=== PATIENT | male | born 1980 | race Caucasian/White ===

== ENCOUNTER 2016-12-08 18:02 | Observation (INO) ==
--- NOTE | 2016-12-08 18:19 | Emergency Department Note ---
Disposition Clinical Impression: Substance abuse, Paranoia (psychosis), Methamphetamine abuse, Cocaine abuse Disposition: Admitted As Inpatient Condition: Fair Referrals: NO,PCP [Primary Care Provider] - Forms: ED Satisfaction Letter Time of Disposition: 20:47 Psych HPI - General Chief Complaint: ED Psychiatric Symptoms Stated Complaint: Psych complaints Time Seen by Provider: 12/08/16 18:10 Source: patient, EMS Mode of arrival: EMS Limitations: no limitations Nursing Notes Reviewed: Yes Vital Signs Reviewed: Yes - History of Present Illness HPI Narrative: 36-year-old says he's been on a 5 day binge of methamphetamine injection. The patient has not slept in 3-4 days. He apparently got paranoid and started walking down the street. He was picked up by the police and brought here. Pt complaint: altered mental status, other (Methamphetamine binge) Onset (ago): day(s) (5) Duration: constant History of similar episodes: Yes Improves with: none Worsens with: none Context: recent drug abuse (After the ketamine) Alleged intoxication: Yes Associated Psychiatric Symptoms: other (Paranoia) Associated symptoms: Denies: confusion, headache, shortness of breath Traumatic symptoms: denies traumatic injury Treatments prior to arrival: none, retirement/police - Related Data Allergies Allergy/AdvReac Type Severity Reaction Status Date / Time No Known Allergies Allergy Verified 12/08/16 18:05 Constitutional: Denies: fever, chills, weakness, weight change Eyes: Denies: eye pain, eye discharge, vision change ENT ED: Denies: ear pain, throat pain, dental pain, hearing loss, epistaxis, congestion, dysphagia Cardiovascular: Denies: chest pain, palpitations, dyspnea on exertion, edema, syncope Respiratory: Denies: cough, dyspnea, wheezes, hemoptysis, stridor Gastrointestinal: Denies: abdominal pain, nausea, vomiting, diarrhea, constipation, hematemesis, melena, hematochezia Genitourinary: Denies: urgency, dysuria, frequency, hematuria Musculoskeletal: Denies: back pain, neck pain, arthralgia, myalgia Integumentary: Denies: rash, abrasion, lesions Neurological: Denies: headache, weakness, numbness, paresthesias, confusion, abnormal gait, vertigo Psychiatric: Denies: anxiety, depression, suicidal thoughts, homicidal thoughts , auditory hallucinations, visual hallucinations Endocrine: Denies: fatigue Hematological/Lymphatic: Denies: easy bleeding, easy bruising Allergic/Immunologic: Denies: facial swelling, urticaria Past Medical History - Past Medical History Medical history: Reports: no medical history Psychiatric history: Reports: anxiety - Social History Smoking Status: Former smoker Smokeless Tobacco Status: No Alcohol use: Reports: occasionally Drug use: Reports: cocaine, marijuana, methamphetamine, IVDU, prescription drug abuse Physical Exam - General Limitations: no limitations General appearance: alert, in no apparent distress - Head Head exam: atraumatic, normocephalic, normal inspection - Eye Eye exam: Present: normal appearance, PERRL, EOMI - ENT ENT exam: normal exam, normal oropharynx, mucous membranes moist - Neck Neck exam: Present: normal inspection, full ROM, trachea midline - Chest Chest inspection: Present: normal inspection, symmetric chest wall rise - Respiratory Respiratory exam: Present: normal lung sounds bilaterally - Cardiovascular Cardiovascular exam: Present: regular rate, normal rhythm, normal heart sounds - Abdominal Exam Abdominal exam: Present: soft, Non-Tender. Absent: tenderness, distention, guarding, rebound, rigidity - Extremities Exam Extremities exam: Present: normal inspection, full ROM. Absent: tenderness, pedal edema - Expanded Lower Extremity Exam Neurovascular/Tendon exam: Absent: motor deficit, sensory deficit, tendon deficit Gait: observed and normal - Back Exam Back exam: Present: normal inspection, full ROM. Absent: tenderness - Neurological Exam Neurological exam: Present: alert, oriented X3 - Psychiatric Psychiatric exam: Present: normal affect, normal mood - Skin Skin exam: Present: warm, dry, intact, normal color Course - Reevaluation(s) Reevaluation #1: Patient was evaluated by psychiatry who did not feel that they could admit him here. Patient is obviously not safe to go home and from my point of view appears to be psychiatric however they do not want to admit him. Time: 22:25 - Consultations Consultation #1: I discussed the case with , he will admit here he wants the patient to have a sitter. Time: 22:25 Vital Signs Temperature 98.6 F 12/08/16 18:05 Pulse Rate 103 12/08/16 18:05 Respiratory Rate 16 12/08/16 18:05 Blood Pressure 150/93 12/08/16 18:05 O2 Sat by Pulse Oximetry 97 12/08/16 18:05 Temperature 98.6 F 12/08/16 18:05 Pulse Rate 103 12/08/16 18:05 Respiratory Rate 16 12/08/16 18:05 Blood Pressure 150/93 12/08/16 18:05 O2 Sat by Pulse Oximetry 97 12/08/16 18:05 Oxygen Delivery Oxygen Delivery Room Air Psych - Lab Data Result diagrams: 12/08/16 18:51 12/08/16 18:51 Lab Results 12/08/16 12/08/16 12/08/16 Range/Units 18:51 18:51 20:10 WBC 7.2 (4.3-11.1) K/mcL RBC 5.15 (4.19-5.50) M/mcL Hgb 15.8 (12.9-16.9) g/dL Hct 46.2 (37.5-50.1) % MCV 89.7 (83.0-100.0) fL MCH 30.7 (28.0-33.3) pg MCHC 34.2 (31.6-35.5) g/dL RDW 12.2 (11.5-14.5) % Plt Count 247 (140-400) K/mcL MPV 9.0 L (9.4-12.4) fL Immature Gran % 0.4 (0-4) % Seg Neutrophils % 76.1 % Lymphocytes % 15.0 % Monocytes % 7.9 % Eosinophils % 0.3 % Basophils % 0.3 % Neutrophils # 5.5 (1.6-8.9) K/mcL Lymphocytes # 1.1 (0.6-4.6) K/mcL Monocytes # 0.6 (0.0-1.3) K/mcL Eosinophils # 0.0 (0.0-0.6) K/mcL Basophils # 0.0 (0.0-0.2) K/mcL Sodium 140 (136-145) mEq/L Potassium 3.6 (3.5-4.5) mEq/L Chloride 104 (98-109) mEq/L Carbon Dioxide 24 (19-29) mEq/L BUN 14 (8-26) mg/dL Creatinine 0.86 (0.72-1.25) mg/dL Est GFR ( Amer) > 60 (> 60) Est GFR (Non-Af Amer) > 60 (> 60) BUN/Creatinine Ratio 16 (6-26) Glucose 86 (70-99) mg/dL Calculated Osmolality 290 (280-300) Calcium 9.5 (8.6-10.8) mg/dL Urine Color Yellow (Yellow) Urine Clarity Clear (Clear) Urine pH 6.0 (5.0-8.0) pH Units Ur Specific Balsam 1.027 H (1.010-1.025) Urine Protein Trace (Neg-Trace) mg/dL Urine Glucose (UA) Normal (Normal) mg/dL Urine Ketones 15 H (Negative) mg/dL Urine Blood Negative (Negative) Urine Nitrite Negative (Negative) Urine Bilirubin Negative (Negative) Urine Urobilinogen Normal (Normal) mg/dL Ur Leukocyte Esterase Negative (Negative) Urine Microscopic RBC 3-5 H (0-3) per hpf Urine Microscopic WBC 0-3 (0-3) per hpf Ur Squamous Epith Cells Many H (None-Few) per lpf Urine Bacteria None Seen (None-Few) per hpf Hyaline Casts None Seen (None-Few) per lpf Salicylates < 5.0 L (15-30) mg/dL Urine Opiates Screen (Oauvlm=011) ng/mL Acetaminophen < 1.0 L (10-30) mcg/mL Ur Barbiturates Screen (Xteeqv=145) ng/mL Ur Phencyclidine Scrn (Cutoff=25) ng/mL Ur Amphetamines Screen (Hokrjd=7282) ng/mL U Benzodiazepines Scrn (Mzqfgb=668) ng/mL Urine Cocaine Screen (Cutoff= 300) ng/mL U Marijuana (THC) Screen (Cutoff = 50) ng/mL Ethyl Alcohol < 10 (0-10) mg/dL 12/08/16 Range/Units 20:10 WBC (4.3-11.1) K/mcL RBC (4.19-5.50) M/mcL Hgb (12.9-16.9) g/dL Hct (37.5-50.1) % MCV (83.0-100.0) fL MCH (28.0-33.3) pg MCHC (31.6-35.5) g/dL RDW (11.5-14.5) % Plt Count (140-400) K/mcL MPV (9.4-12.4) fL Immature Gran % (0-4) % Seg Neutrophils % % Lymphocytes % % Monocytes % % Eosinophils % % Basophils % % Neutrophils # (1.6-8.9) K/mcL Lymphocytes # (0.6-4.6) K/mcL Monocytes # (0.0-1.3) K/mcL Eosinophils # (0.0-0.6) K/mcL Basophils # (0.0-0.2) K/mcL Sodium (136-145) mEq/L Potassium (3.5-4.5) mEq/L Chloride (98-109) mEq/L Carbon Dioxide (19-29) mEq/L BUN (8-26) mg/dL Creatinine (0.72-1.25) mg/dL Est GFR ( Amer) (> 60) Est GFR (Non-Af Amer) (> 60) BUN/Creatinine Ratio (6-26) Glucose (70-99) mg/dL Calculated Osmolality (280-300) Calcium (8.6-10.8) mg/dL Urine Color (Yellow) Urine Clarity (Clear) Urine pH (5.0-8.0) pH Units Ur Specific Balsam (1.010-1.025) Urine Protein (Neg-Trace) mg/dL Urine Glucose (UA) (Normal) mg/dL Urine Ketones (Negative) mg/dL Urine Blood (Negative) Urine Nitrite (Negative) Urine Bilirubin (Negative) Urine Urobilinogen (Normal) mg/dL Ur Leukocyte Esterase (Negative) Urine Microscopic RBC (0-3) per hpf Urine Microscopic WBC (0-3) per hpf Ur Squamous Epith Cells (None-Few) per lpf Urine Bacteria (None-Few) per hpf Hyaline Casts (None-Few) per lpf Salicylates (15-30) mg/dL Urine Opiates Screen Negative (Qhffdf=647) ng/mL Acetaminophen (10-30) mcg/mL Ur Barbiturates Screen Negative (Opnjyz=767) ng/mL Ur Phencyclidine Scrn Negative (Cutoff=25) ng/mL Ur Amphetamines Screen Positive H (Okezth=6143) ng/mL U Benzodiazepines Scrn Negative (Qtpfeb=859) ng/mL Urine Cocaine Screen Positive H (Cutoff= 300) ng/mL U Marijuana (THC) Screen Negative (Cutoff = 50) ng/mL Ethyl Alcohol (0-10) mg/dL - EKG Data EKG shows normal: sinus rhythm Rate: normal Rhythm: NSR P waves: other (Short [place] interval) Psychiatric Medical Clearance - Medical Clearance Checklist Does the patient have a NEW psychiatric condition?: Yes Any abnormalities indicating possible medical illness?: No Any history of medical issues?: No Medical History: No Social History Section defined Any abnormal vital signs prior to transfer?: Yes Current Vitals: Last Vital Signs Temp 98.6 F 12/08/16 18:05 Pulse 103 12/08/16 18:05 Resp 16 12/08/16 18:05 BP 150/93 12/08/16 18:05 Pulse Ox 97 12/08/16 18:05 Is the patient intoxicated or cognitively impaired?: Yes (5 day binge of methamphetamine paranoid) Psychiatric Lab Panel: Drug Levels and Toxicity 12/08/16 12/08/16 18:51 20:10 Urine Opiates Screen Negative Acetaminophen < 1.0 L Ur Barbiturates Screen Negative Ur Phencyclidine Scrn Negative Ur Amphetamines Screen Positive H U Benzodiazepines Scrn Negative Urine Cocaine Screen Positive H U Marijuana (THC) Screen Negative Ethyl Alcohol < 10 Any abnormalities on the physical exam?: No Any abnormal labs?: Yes (Drug screen positive for methamphetamine and cocaine) Abnormal Labs: Abnormal lab results MPV 9.0 fL (9.4-12.4) L 12/08/16 18:51 Ur Specific Balsam 1.027 (1.010-1.025) H 12/08/16 20:10 Urine Ketones 15 mg/dL (Negative) H 12/08/16 20:10 Urine Microscopic RBC 3-5 per hpf (0-3) H 12/08/16 20:10 Ur Squamous Epith Cells Many per lpf (None-Few) H 12/08/16 20:10 Salicylates < 5.0 mg/dL (15-30) L 12/08/16 18:51 Acetaminophen < 1.0 mcg/mL (10-30) L 12/08/16 18:51 Ur Amphetamines Screen Positive ng/mL (Edyefh=7542) H 12/08/16 20:10 Urine Cocaine Screen Positive ng/mL (Cutoff= 300) H 12/08/16 20:10 Does the patient require durable medical equiptment?: No Is the patient ambulatory?: Yes Is the patient a fall risk?: No Has the patient been medically cleared?: Yes Any acute medical condition require Tx prior to transfer?: No Statement of Medical Clearance: I have evaluated the patient, reviewed diagnostic information, and certify that the patient's medical condition is sufficiently stable that transfer to the psychiatric unit does not pose a significant risk of deterioration. Tricia.Parrish - Jolynn Assessment: Outstanding Labs
[2016-12-08 18:59] LABS: Basophils % 0.3 %; Eosinophils % 0.3 %; Hematocrit 46.2 % (37.5-50.1); Hemoglobin 15.8 g/dL (12.9-16.9); Immature Granulocytes % 0.4 % (0-4); Lymphocytes # 1.1 K/mcL (0.6-4.6); Mean Corpuscular HGB Conc 34.2 g/dL (31.6-35.5); Mean Corpuscular Hemoglobin 30.7 pg (28.0-33.3); Mean Corpuscular Volume 89.7 fL (83.0-100.0); Monocytes # 0.6 K/mcL (0.0-1.3); Monocytes % 7.9 %; Neutrophils # 5.5 K/mcL (1.6-8.9); Platelet Count 247 K/mcL (140-400); Red Blood Count 5.15 M/mcL (4.19-5.50); Red Cell Distribution Width 12.2 % (11.5-14.5); Segmented Neutrophils % 76.1 %
[2016-12-08 19:14] LABS: Acetaminophen < 1.0 mcg/mL (10-30); BUN/Creatinine Ratio 16 (6-26); Blood Urea Nitrogen 14 mg/dL (8-26); Calcium 9.5 mg/dL (8.6-10.8); Carbon Dioxide 24 mEq/L (19-29); Chloride 104 mEq/L (98-109); Ethanol < 10 mg/dL (0-10); Glucose 86 mg/dL (70-99); Osmolality,Calculated 290 (280-300); Potassium 3.6 mEq/L (3.5-4.5); Sodium 140 mEq/L (136-145); eGFR For African Americans > 60 (> 60); eGFR For Non-African Americans > 60 (> 60)
[2016-12-08 19:15] LABS: Salicylate < 5.0 mg/dL (15-30)
[2016-12-08 20:17] LABS: Bilirubin,Urine Negative (Negative); Blood,Urine Negative (Negative); Clarity,Urine Clear (Clear); Color,Urine Yellow (Yellow); Glucose,Urine (UA) Normal (Normal); Ketones,Urine 15 mg/dL (Negative); Leukocyte Esterase,Urine Negative (Negative); Nitrite,Urine Negative (Negative); Protein,Urine Trace mg/dL (Neg-Trace); Specific Gravity,Urine 1.027 (1.010-1.025); Urobilinogen,Urine Normal (Normal)
[2016-12-08 20:19] LABS: Bacteria,Urine None Seen per hpf (None-Few); Hyaline Casts,Urine None Seen per lpf (None-Few); Squamous Epithelial Cell,Urine Many per lpf (None-Few); WBC,Urine 0-3 per hpf (0-3)
[2016-12-08 20:23] LABS: Amphetamine Screen,Urine Positive ng/mL (Cutoff=1000); Barbiturate Screen,Urine Negative ng/mL (Cutoff=200); Benzodiazepines Screen,Urine Negative ng/mL (Cutoff=200); Cannabinoid Screen,Urine Negative ng/mL (Cutoff = 50); Cocaine Screen,Urine Positive ng/mL (Cutoff= 300); Opiate Screen,Urine Negative ng/mL (Cutoff=300); Phencyclidine Screen,Urine Negative ng/mL (Cutoff=25)
[2016-12-09] MEDS ORDERED: Naloxone 0.4 MG/ML INJ IVP PRN (01:33)
[2016-12-09] MEDS ORDERED: *HR* Morphine 2 MG/ML SYRINGE IVP PRN (01:33)
[2016-12-09] MEDS ORDERED: *HR* LORazepam 2 MG/ML VIAL IVP PRN (01:33)
--- NOTE | 2016-12-09 01:43 | Internal Med History&Physical ---
Date of Encounter: 12/09/16 Time of Encounter: 01:37 Assessment and Plan (1) Paranoia (psychosis) Current visit: Yes Status: Acute 1. Pt cooperative and following commands now. 2. Pt is sleep deprived due to drug abuse. 3. Will allow patient to sleep. 4. 24 hour sitter. 5. Likely due to drugs of abuse. 6. Consult psychiatry in morning. (2) Substance abuse Current visit: Yes Status: Chronic 1. Pt fidgety and agitated at times from his drugs of abuse. 2. Follows commands now and direction. 3. Sleep deprived --needs to "sleep it off". 4. Will provide Ativan as needed for anxiety/agitation as needed. 5. Patient counseled on the need to stop drug abuse. He has no intention. 6. Monitor vitals, telemetry, 24 hour sitter. (3) Tooth abscess Current visit: Yes Status: Acute 1. Will start Augmentin PO. 2. Patient will need outpatient dental follow up. (4) DVT prophylaxis Current visit: Yes Status: Acute 1. Heparin SQ. Internal Medicine - H&P: HPI Chief complaint: insomnia; altered mental status; paranoia Admitted From: Emergency Dept Plans for Post Hospital Care: Home History of present illness: Mr. Grant is a 36 year old male who presents to the ER right after being found wandering in the road by a geographic area intelligence officer. He acted paranoid and confused , so he was brought to the ER. In the ER, patient admitted to a 5 day binge of methamphetamine injection and probable cocaine use as well. He states he has not slept in over 4 days and was quite paranoid appearing, confused at times, and agitated according ER staff. Psychiatry was consulted, but they recommended patient be admitted to the internal medicine service. Upon my assessment of the patient, patient was lying in bed comfortably. He is easily arousable and quite fidgety and agitated at times. He admits to using methamphetamine on a chronic and frequent basis. He also admits to using marijuana and cocaine. He denies any hallucinations or delusions at this time. However, he still does exhibit some paranoid features and keeps questioning what we're doing and looking out the hallway. He denies any attempts or plans of suicide. He states he is a "druggie "and he just wants to get a "quick fix. " He states he is homeless and was wandering on the street and does not remember being picked up by the police. He tells me he just got out of shelter recently for drug offenses. He also has a history of hepatitis C for which he has never been treated. He also complains of infected tooth in his right jaw presently. He denies any chest pain, shortness breath, palpitations, vomiting, or diarrhea. Past Med Surg Social Fam HX - Past Medical History Source: patient Medical history: hepatitis (C) Psychiatric history: anxiety - Past Surgical History Surgical History: herniorrhaphy - Social History Smoking Status: Former smoker Smokeless Tobacco Status: No Alcohol use: occasionally Drug use: cocaine, marijuana, methamphetamine, IVDU, prescription drug abuse Occupational status: unemployed Current living situation: Homeless Activity Level: Independent ambulation Recent Out of Country Travel Within the Last 8 Weeks: No - Family History Mother Living Status: Hx Family Respiratory Disorders: Yes (COPD) Father Living Status: Cause of : suicide Internal Medicine - H&P: Meds No Known Home Drugs 12/08/16 [History] Allergies No Known Allergies Allergy (Verified 12/08/16 18:05) - Constitutional Constitutional: no chills, no fever(s), no night sweats - EENT Eyes: no blurry vision, no change in vision Ears: no ear pain, no tinnitus Nose, mouth and throat: dental pain, no nasal congestion, no sore throat - Cardiovascular Cardiovascular ROS IM: palpitations, no chest pain, no diaphoresis, no dyspnea, no dyspnea on exertion, no syncope - Respiratory Respiratory: no cough, no dyspnea, no hemoptysis, no dyspnea on exertion - Gastrointestinal Gastrointestinal: no abdominal pain, no diarrhea, no hematemesis, no hematochezia, no melena, no vomiting - Genitourinary Genitourinary ROS male: no dysuria, no hematuria - Musculoskeletal Musculoskeletal ROS IM: no arthralgias, no back pain - Integumentary Integumentary IM: no rash, no jaundice - Neurological Neurological ROS: no dizziness, no focal weakness, no frequent falls, no headache(s) - Psychiatric Psychiatric: anxiety, behavioral changes, paranoia, visual hallucinations, no homicidal ideation, no suicidal ideation Additional comments: insomnia - Endocrine Endocrine IM: flushing - Hematologic/Lymphatic Hematologic/Lymphatic: no easy bruising - Allergic/Immunologic Allergic/Immunologic: no wheezing, no GI upset with certain foods - Constitutional Vitals: Temp Pulse Resp BP Pulse Ox 99.3 F 104 16 161/88 97 12/08/16 23:19 12/08/16 23:19 12/08/16 23:19 12/08/16 23:19 12/09/16 00:19 General appearance: Present: cooperative, disheveled, A&O X 3, pleasant, no acute distress Exam: fidgety and agitated at times; appears paranoid, but easily reoriented to situation; cooperates with minimal guidance - Head Head exam: Present: atraumatic, normal inspection - Expanded Head Exam Head exam expanded: Absent: abrasion, contusion, general tenderness - Eye Eye exam: Present: EOMI, PERRL (pupils ~ 3mm and reactive). Absent: scleral icterus Pupils: Present: normal accommodation - ENT ENT exam: Present: mucous membranes dry, normal oropharynx Additional comments: infected/abscessed right lower molar - Neck Neck exam general surgery: Present: full ROM, supple. Absent: lymphadenopathy, nuchal rigidity - Respiratory Respiratory exam: Present: CTAB. Absent: chest wall tenderness, rales, respiratory distress, rhonchi, wheezes - Cardiovascular Cardiovascular exam: Present: RRR, +S1, +S2, tachycardia (HR ~ 105). Absent: diastolic murmur, JVD, systolic murmur - GI/Abdominal GI/Abdominal exam: Present: normal bowel sounds, soft. Absent: guarding, hepatomegaly, mass, rebound, splenomegaly, tenderness - Extremities Exam Extremities exam: Present: full ROM, warm. Absent: joint swelling, tenderness Additional comments: injection sites in arms noted - Back Exam Back exam: Present: normal inspection. Absent: CVA tenderness (L), CVA tenderness (R) - Neurological Exam Neurological exam: Present: alert, CN II-XII intact, oriented X3 (oriented times 3 but paranoid and fidgety at times), no focal deficits - Psychiatric Psychiatric exam: Present: agitated, anxious, manic. Absent: homicidal ideation , suicidal ideation - Skin Skin exam: Present: dry, warm. Absent: rash Internal Med - H&P Results - Labs CBC & Chem 7: 12/08/16 18:51 12/08/16 18:51 - EKG Data -: EKG Interpreted by Myself EKG shows normal: sinus rhythm Rate: tachycardia - EKG Data EKG comments: 12/09/16 01:49 Sinus tachycardia; no acute ST-T changes
[2016-12-09] MEDS ORDERED: Water for inj. (sterile) 10 ML IV ONE (02:42)
[2016-12-09] MEDS: 0.9 % Sodium Chloride w KCl 20 MEQ/1,000 ML MLS IVC SCH ×2 (02:59→11:57)
[2016-12-09 04:56] LABS: Alanine Aminotransferase 44 Units/L (0-55); Albumin 3.5 g/dL (3.5-5.0); Alkaline Phosphatase 59 Units/L (38-126); Aspartate Amino Transferase 34 Units/L (5-34); BUN/Creatinine Ratio 11 (6-26); Bilirubin,Total 0.7 mg/dL (0.2-1.2); Blood Urea Nitrogen 11 mg/dL (8-26); Carbon Dioxide 25 mEq/L (19-29); Chloride 102 mEq/L (98-109); Globulin 3.6 g/dL (2.4-3.5); Glucose 96 mg/dL (70-99); Magnesium 1.8 mg/dL (1.6-2.6); Osmolality,Calculated 279 (280-300); Potassium 3.8 mEq/L (3.5-4.5); Sodium 135 mEq/L (136-145); Total Protein 7.1 g/dL (6.0-8.3); eGFR For African Americans > 60 (> 60); eGFR For Non-African Americans > 60 (> 60)
[2016-12-09] MEDS ORDERED: *HR* Heparin 5,000 UNIT/ML VIAL SQ SCH (07:00)
--- NOTE | 2016-12-09 11:00 | Event Note ---
Date of Encounter: 12/09/16 Time of Encounter: 09:15 Patient seen and examined. On examination, patient sitting upright in bed. Patient alert and oriented 3 and denies pain at this time. He states that he is tired. He states he has soreness to his tooth and tongue. He states he has blisters on his tongue that he states he got from "bad meth." He admits to amphetamine and cocaine abuse as well as recent heroin abuse within the last 5 days. He states that he is living with his girlfriend and states that they are jumping from house to house. He denies suicidal or homicidal ideation at this time. Awaiting psychiatric evaluation. Patient stated he is interested in obtaining resources for rehabilitation however he states he has a court date coming up on 12/22/16 and states he is facing 6-18 months. Continue Augmentin for tooth abscess. Add Orajel for blisters on his tongue. Patient also with what appears to be fever blisters on his lip, will add acyclovir. Urinalysis unremarkable for signs of infection. services engineer also onboard.
[2016-12-09] MEDS ORDERED: Benzocaine 20% 9 GM GEL..GRAM. TP PRN (11:01)
[2016-12-09] MEDS ORDERED: Acyclovir 200 MG CAPSULE PO SCH (12:00)
--- NOTE | 2016-12-09 15:00 | Consult Note ---
Date of Encounter: 12/09/16 Time of Encounter: 14:30 Assessment & Recommendation (1) Methamphetamine dependence, continuous Current visit: Yes Status: Acute Assessment & Recommendation: Patient has significant history of methamphetamine and heroin and other drugs dependence, he is experiencing some withdrawal symptoms and will need to be observed for the next 48-72 hours. He is scheduled to have a court hearing where he would be sentenced for charges of burglary. At this time I would recommend writing to the courts requests court-ordered drug treatment since this patient cannot commit himself to rehabilitation treatment. There are no acute or chronic psychiatric issues that need to be addressed at this time. Thank you for the consultation. History of Present Illness Patient: new to practice Requesting Physician: Marisel Escalante Reason for consult: Paranoia, drug abuse History of present illness: Mr. Grant is a 36 year old male was found by police wandering in the streets and showing bizarre behavior and paranoia he was brought to the hospital for evaluation patient stated that he has not been sleeping for at least 4 days and has been on a binge off meth amphetamine for the past 4 years for 10 years actually. He had several residential sentences related to stealing to support his habit. He also admits to abusing other drugs like her 1 and other substances. Patient had no previous psychiatric treatment or psychiatric illnesses and he has not been motivated to seek help or treatment. He is unemployed and has not worked since 2008 and currently homeless. CC: Marisel Escalante Past Med Surg Social Fam HX - Past Medical History Medical history: hepatitis (C) - Past Psychiatric History Psychiatric history: Reports: no psych history - Past Surgical History Surgical History: herniorrhaphy - Social History Smoking Status: Former smoker Smokeless Tobacco Status: No Alcohol use: occasionally Drug use: cocaine, marijuana, methamphetamine, IVDU, prescription drug abuse - Family History Mother Living Status: Hx Family Respiratory Disorders: Yes (COPD) Father Living Status: Cause of : suicide Medications & Allergies No Known Home Drugs 12/08/16 [History] Allergies No Known Allergies Allergy (Verified 12/09/16 07:02) Mental Status Exam Patient orientation: Yes Person, Yes Place Level of alertness: Alert Patient appearance: Unkempt, Disheveled Behavior: cooperative, nervous, anxious, restless Psychomotor activity: Increased Eye contact: Fleeting Contact Mood description: Euthymic/stable, Anxious, Labile Affect description: constricted, dysphoric Speech pattern: Disorganized, Limited, Impoverished Speech volume: Soft/Quiet Thought process: Tangential, Thought Blocking, Racing Thought content: No Suicidal ideation, No Homicidal ideation, No Overt delusions , Yes Paranoid delusion Perceptual disturbances: No Auditory hallucinations, No Visual hallucinations Attention span: Unable to Focus Memory description: Grossly Intact Patient reliability: Questionable Historian Intelligence estimate: Average Judgment: Limited Insight: Partial Results - Vital Signs Vital signs: Temp Pulse Resp BP Pulse Ox 98.3 F 108 16 118/70 99 12/09/16 11:49 12/09/16 11:49 12/09/16 11:49 12/09/16 11:49 12/09/16 11:49 - Labs Labs: Laboratory Last Values WBC 7.2 K/mcL (4.3-11.1) 12/08/16 18:51 RBC 5.15 M/mcL (4.19-5.50) 12/08/16 18:51 Hgb 15.8 g/dL (12.9-16.9) 12/08/16 18:51 Hct 46.2 % (37.5-50.1) 12/08/16 18:51 MCV 89.7 fL (83.0-100.0) 12/08/16 18:51 MCH 30.7 pg (28.0-33.3) 12/08/16 18:51 MCHC 34.2 g/dL (31.6-35.5) 12/08/16 18:51 RDW 12.2 % (11.5-14.5) 12/08/16 18:51 Plt Count 247 K/mcL (140-400) 12/08/16 18:51 MPV 9.0 fL (9.4-12.4) L 12/08/16 18:51 Immature Gran % 0.4 % (0-4) 12/08/16 18:51 Seg Neutrophils % 76.1 % 12/08/16 18:51 Lymphocytes % 15.0 % 12/08/16 18:51 Monocytes % 7.9 % 12/08/16 18:51 Eosinophils % 0.3 % 12/08/16 18:51 Basophils % 0.3 % 12/08/16 18:51 Neutrophils # 5.5 K/mcL (1.6-8.9) 12/08/16 18:51 Lymphocytes # 1.1 K/mcL (0.6-4.6) 12/08/16 18:51 Monocytes # 0.6 K/mcL (0.0-1.3) 12/08/16 18:51 Eosinophils # 0.0 K/mcL (0.0-0.6) 12/08/16 18:51 Basophils # 0.0 K/mcL (0.0-0.2) 12/08/16 18:51 Sodium 135 mEq/L (136-145) L 12/09/16 04:11 Potassium 3.8 mEq/L (3.5-4.5) 12/09/16 04:11 Chloride 102 mEq/L (98-109) 12/09/16 04:11 Carbon Dioxide 25 mEq/L (19-29) 12/09/16 04:11 BUN 11 mg/dL (8-26) 12/09/16 04:11 Creatinine 0.96 mg/dL (0.72-1.25) 12/09/16 04:11 Est GFR ( Amer) > 60 (> 60) 12/09/16 04:11 Est GFR (Non-Af Amer) > 60 (> 60) 12/09/16 04:11 BUN/Creatinine Ratio 11 (6-26) 12/09/16 04:11 Glucose 96 mg/dL (70-99) 12/09/16 04:11 Calculated Osmolality 279 (280-300) L 12/09/16 04:11 Calcium 9.0 mg/dL (8.6-10.8) 12/09/16 04:11 Magnesium 1.8 mg/dL (1.6-2.6) 12/09/16 04:11 Total Bilirubin 0.7 mg/dL (0.2-1.2) 12/09/16 04:11 AST 34 Units/L (5-34) 12/09/16 04:11 ALT 44 Units/L (0-55) 12/09/16 04:11 Alkaline Phosphatase 59 Units/L (38-126) 12/09/16 04:11 Serum Total Protein 7.1 g/dL (6.0-8.3) 12/09/16 04:11 Albumin 3.5 g/dL (3.5-5.0) 12/09/16 04:11 Globulin 3.6 g/dL (2.4-3.5) H 12/09/16 04:11 Albumin/Globulin Ratio 1.0 (1.1-2.2) L 12/09/16 04:11 Urine Color Yellow (Yellow) 12/08/16 20:10 Urine Clarity Clear (Clear) 12/08/16 20:10 Urine pH 6.0 pH Units (5.0-8.0) 12/08/16 20:10 Ur Specific [place] 1.027 (1.010-1.025) H 12/08/16 20:10 Urine Protein Trace mg/dL (Neg-Trace) 12/08/16 20:10 Urine Glucose (UA) Normal mg/dL (Normal) 12/08/16 20:10 Urine Ketones 15 mg/dL (Negative) H 12/08/16 20:10 Urine Blood Negative (Negative) 12/08/16 20:10 Urine Nitrite Negative (Negative) 12/08/16 20:10 Urine Bilirubin Negative (Negative) 12/08/16 20:10 Urine Urobilinogen Normal mg/dL (Normal) 12/08/16 20:10 Ur Leukocyte Esterase Negative (Negative) 12/08/16 20:10 Urine Microscopic RBC 3-5 per hpf (0-3) H 12/08/16 20:10 Urine Microscopic WBC 0-3 per hpf (0-3) 12/08/16 20:10 Ur Squamous Epith Cells Many per lpf (None-Few) H 12/08/16 20:10 Urine Bacteria None Seen per hpf (None-Few) 12/08/16 20:10 Hyaline Casts None Seen per lpf (None-Few) 12/08/16 20:10 Salicylates < 5.0 mg/dL (15-30) L 12/08/16 18:51 Urine Opiates Screen Negative ng/mL (Fhicuf=970) 12/08/16 20:10 Acetaminophen < 1.0 mcg/mL (10-30) L 12/08/16 18:51 Ur Barbiturates Screen Negative ng/mL (Cqtaox=904) 12/08/16 20:10 Ur Phencyclidine Scrn Negative ng/mL (Cutoff=25) 12/08/16 20:10 Ur Amphetamines Screen Positive ng/mL (Lncqcn=7455) H 12/08/16 20:10 U Benzodiazepines Scrn Negative ng/mL (Iltbya=460) 12/08/16 20:10 Urine Cocaine Screen Positive ng/mL (Cutoff= 300) H 12/08/16 20:10 U Marijuana (THC) Screen Negative ng/mL (Cutoff = 50) 12/08/16 20:10 Ethyl Alcohol < 10 mg/dL (0-10) 12/08/16 18:51 Consult Discharge Plan - Plan Referrals: NO,PCP [Primary Care Provider] -
--- NOTE | 2016-12-09 15:10 | Electrocardiograph Report ---
[place] [id number] Test Date: 2016-12-08 Pat Name: Salo Grant Department: 102 Room: 3B Gender: M Shallot Packer: : [id number] Requested By: Parrish Sosa Order Number: [id number] Reading MD: Alex Ness MD Measurements Intervals [place] Rate: 98 P: 22 AR: 112 QRS: 20 QRSD: 105 T: 52 QT: 348 QTc: 404 Interpretive Statements SINUS RHYTHM WITH SHORT AR INTERVAL Electronically Signed On 12-09-2016 15:08:57 EST by Alex Ness MD
[2016-12-09 15:42] VITALS: BP 110/70
--- NOTE | 2016-12-09 15:59 | Discharge Summary ---
Date of Encounter: 12/09/16 Time of Encounter: 09:00 (and 1545) - Discharge Diagnosis (1) HSV (herpes simplex virus) infection Priority: Primary Status: Acute Comments: Treated with acyclovir while admitted, patient declined to psychotherapy or prescription upon discharge. He simply states he would never take this medicine. (2) Cocaine abuse Priority: Primary Status: Acute (3) DVT prophylaxis Priority: Primary Status: Acute Comments: Subcutaneous heparin while admitted (4) Methamphetamine abuse Priority: Primary Status: Acute (5) Methamphetamine dependence, continuous Priority: Primary Status: Acute (6) Paranoia (psychosis) Priority: Primary Status: Resolved (7) Tooth abscess Priority: Primary Status: Acute Comments: We will continue Augmentin upon disposition (8) Substance abuse Priority: Secondary Status: Chronic - Discharge Medications Prescriptions: Amoxicillin/Clavulanate [Augmentin] 875 mg PO BIDWM #18 tablet Benzocaine 20% [Orajel] 1 gm TP TID PRN #1 gel..gram. PRN Reason: Mouth Sore Pain Home Medications: Amoxicillin/Clavulanate [Augmentin] 875 mg PO BIDWM #18 tablet 12/09/16 [Rx] Benzocaine 20% [Orajel] 1 gm TP TID PRN #1 gel..gram. 12/09/16 [Rx] Allergies/Adverse Reactions: Allergies No Known Allergies Allergy (Verified 12/09/16 07:02) Date of admission: 12/08/16 22:48 Primary care physician: PCP NO Consults: 12/09/16 01:35 Consult to Pharmacy Tech [CONS] Routine Reason for SW Consult: homeless; drug abuse 12/09/16 01:54 Consult to Psychiatry [CONS] Routine Consulting Provider: Psychiatry [facility] Reason for Consult: paranoia Call Completed: Yes Discharging clinician: Marisel Kelsey Anticipated date of discharge: 12/09/16 (no medical reason to keep patient; A& Ox3) - Patient Status Disposition: Home, Self-Care Condition: Fair Functional capacity at discharge: independent ambulation Overall status at discharge: patient is back to baseline - Discharge Instructions Follow Up With: NO,PCP [Primary Care Provider] - Additional Instructions: Follow-up upon resources given to you by social work - Diet and Activity Activity: increase activity as tolerated Diet: regular diet Hospital course: Mr. Grant is a 36 year old male with past medical history of hepatitis C, anxiety, former tobacco abuse, cocaine abuse, marijuana abuse, methamphetamine abuse, IV drug use with heroin, prescription drug abuse. Patient presented to the emergency department chief complaint police judge found him wandering. He active paranoid and confused and was subsequently brought to the emergency department. In the emergency department, patient admitted to a 5 day binge of methamphetamine, cocaine abuse. He states he had not slept in over 4 days and was paranoid and confused at times while in the emergency department. Psychiatry was brought on board from the emergency department who recommended admission to internal medicine. Patient was admitted to the hospitalist service for further evaluation and management. Over the course of his one-day admission, patient was alert and oriented 3 and denied suicidal or homicidal ideations. Psychiatry saw the patient and cleared him and stated he did not require inpatient psychiatric services. Patient was hemodynamically stable, electrolytes stable. He tolerated a regular diet while admitted. Again, he was alert and oriented 3 throughout this admission. Whether or not patient was ready to stop abusing drugs changed depending upon his patient was speaking to. Patient was given multiple resources per high school social science teacher regarding treatment options available. Patient stating he has a pending court date in 2 weeks and is facing 6-18 months. Patient was noted to have a oral lesions and was started on acyclovir however patient declined acyclovir prescription upon discharge. He was also noted to have an abscessed tooth and was given a 10 day course of Augmentin. He was also given Orajel for his oral lesions. Initial reports that the patient was homeless however the patient was alert and oriented 3 and stated he lived with his grandmother and stated he was not homeless. His girlfriend was also present during this admission. He did not display any acute, active withdrawal symptoms during this admission and stated he wanted to go home. He again declined any suicidal or homicidal ideations and he was cleared to be discharged. He was discharged home in stable condition with close outpatient follow-up and rehabilitation recommended. - Time Spent with Patient Total time spent providing and/or coordinating discharge services: - Constitutional Vitals: Temp Pulse Resp BP Pulse Ox 97.8 F 102 16 110/70 95 12/09/16 15:41 12/09/16 15:41 12/09/16 15:41 12/09/16 15:41 12/09/16 15:41 General appearance: Present: cooperative, disheveled, A&O X 3, pleasant, no acute distress, answers questions appropriately - Head Head exam: Present: atraumatic, normocephalic - Eye Eye exam: Present: PERRL, conjuntiva pink, sclera anicteric Pupils: Present: PERRL - Neck Neck exam general surgery: Present: supple, trachea midline. Absent: lymphadenopathy - Respiratory Respiratory exam: Present: decreased breath sounds. Absent: accessory muscle use, rales, respiratory distress, rhonchi, wheezes - Cardiovascular Cardiovascular exam: Present: RRR, +S1, +S2. Absent: diastolic murmur, gallop, rubs, systolic murmur - GI/Abdominal GI/Abdominal exam: Present: normal bowel sounds, soft, no peritoneal signs. Absent: distended, tenderness - Extremities Exam Extremities exam: Present: warm, radial pulses palpable and symetrical. Absent : calf tenderness, cyanotic, pedal edema - Neurological Exam Neurological exam: Present: alert, CN II-XII intact, normal gait, oriented X3, no focal deficits, strengths equal and symetr throughout. Absent: pronater drift, facial droop, speech deficit - Skin Skin exam: Present: dry, intact, normal color, warm - Expanded Skin Exam Distribution of rash: Present: BONNIE CHAIREZ (Track barnett, no indication of abscesses )
== END 2016-12-09 17:00 | disposition home or self-care (01) ==
LOC: EMEROO 18:02 → 3BNU 18:02
PROVIDERS: ADMIT Pediatrics; ATTEND Nurse Practitioner Family

== ENCOUNTER 2019-08-30 13:32 | Observation (INO) ==
[2019-08-30 14:19] LABS: Bilirubin,Urine Negative (Negative); Blood,Urine Negative (Negative); Clarity,Urine Clear (Clear); Color,Urine Yellow (Yellow); Glucose,Urine (UA) Normal (Normal); Ketones,Urine Negative (Negative); Leukocyte Esterase,Urine Small (Negative); Nitrite,Urine Negative (Negative); PH,Urine 7.5 pH Units (5.0-8.0); Protein,Urine Negative (Neg-Trace); Specific Gravity,Urine 1.006 (1.010-1.025); Urobilinogen,Urine Normal (Normal)
[2019-08-30 14:21] LABS: Bacteria,Urine None Seen per hpf (None-Few); Hyaline Casts,Urine None Seen per lpf (None-Few); RBC,Urine 0-3 per hpf (0-3); Squamous Epithelial Cell,Urine Few per lpf (None-Few); WBC,Urine 0-3 per hpf (0-3)
[2019-08-30 14:28] LABS: Amphetamine Screen,Urine Positive ng/mL (Cutoff=1000); Barbiturate Screen,Urine Negative ng/mL (Cutoff=200); Benzodiazepines Screen,Urine Negative ng/mL (Cutoff=200); Cannabinoid Screen,Urine Negative ng/mL (Cutoff = 50); Cocaine Screen,Urine Negative ng/mL (Cutoff= 300); Opiate Screen,Urine Negative ng/mL (Cutoff=300); Phencyclidine Screen,Urine Negative ng/mL (Cutoff=25)
[2019-08-30 14:39] LABS: Eosinophils % 0.7 %; Hematocrit 41.8 % (37.5-50.1); Hemoglobin 14.6 g/dL (12.9-16.9); Immature Granulocytes % 0.2 % (0-4); Lymphocytes # 1.3 K/mcL (0.6-4.6); Lymphocytes % 30.2 %; Mean Corpuscular HGB Conc 34.9 g/dL (31.6-35.5); Mean Corpuscular Hemoglobin 30.8 pg (28.0-33.3); Mean Corpuscular Volume 88.2 fL (83.0-100.0); Mean Platelet Volume 9.2 fL (9.4-12.4); Monocytes # 0.5 K/mcL (0.0-1.3); Monocytes % 12.6 %; Neutrophils # 2.3 K/mcL (1.6-8.9); Platelet Count 249 K/mcL (140-400); Red Blood Count 4.74 M/mcL (4.19-5.50); Red Cell Distribution Width 11.9 % (11.5-14.5); Segmented Neutrophils % 55.3 %; White Blood Count 4.1 K/mcL (4.3-11.1)
[2019-08-30 14:52] LABS: Estimated Average Glucose 114 mg/dl
[2019-08-30 14:57] LABS: Acetaminophen < 10 mcg/mL (10-20); BUN/Creatinine Ratio 12 (6-26); Blood Urea Nitrogen 11 mg/dL (6-20); Carbon Dioxide 27 mEq/L (23-29); Chloride 103 mEq/L (98-107); Chol/HDL Ratio 2.5 (0-4.9); Cholesterol 135 mg/dL (< 200); Ethanol < 10 mg/dL (Less than 10); Glucose 85 mg/dL (70-105); HDL Cholesterol 55 mg/dL (40-59); LDL Cholesterol,Calculated 71 mg/dL (0-99); Osmolality,Calculated 281 (280-300); Potassium 3.7 mEq/L (3.5-5.1); Salicylate < 2.5 mg/dL (15.0-30.0); Sodium 136 mEq/L (136-145); Triglycerides 44 mg/dL (< 150); eGFR For African Americans > 60 (> 60); eGFR For Non-African Americans > 60 (> 60)
[2019-08-30] MEDS ORDERED: Acetaminophen 325 MG TABLET PO PRN (21:46)
[2019-08-30] MEDS ORDERED: *HR* LORazepam 1 MG TABLET PO PRN (21:46)
[2019-08-30] MEDS ORDERED: *HR* LORazepam 2 MG/ML VIAL IM PRN (21:46)
[2019-08-30] MEDS ORDERED: Haloperidol Lactate 5 MG/ML VIAL IM PRN (21:46)
[2019-08-30] MEDS ORDERED: MOM Conc 10 ML UD.LIQ PO PRN (21:46)
[2019-08-30] MEDS ORDERED: Mag Hydrox/Al Hydrox/Simeth 30 ML UDC PO PRN (21:46)
[2019-08-30] MEDS ORDERED: traZODone 50 MG TABLET PO PRN (21:46)
[2019-08-31] MEDS: hydrOXYzine pamoate 25 MG CAPSULE PO PRN (14:00)
[2019-08-31] MEDS ORDERED: cloNIDine HCl 0.1 MG TABLET PO PRN (16:13)
[2019-09-01 08:48] VITALS: BP 112/73
[2019-09-01] MEDS ORDERED: BuPROPion XL (24 HR) 150 MG TABLET PO SCH (09:45)
[2019-09-01] MEDS: hydrOXYzine pamoate 25 MG CAPSULE PO PRN (10:24)
== END 2019-09-01 11:05 | disposition home or self-care (01) ==
LOC: 1ANU 13:32 → EMEROOARM 13:32 → 1ANU 22:02
PROVIDERS: ADMIT Psychiatry & Neurology Psychiatry; ATTEND Psychiatry & Neurology Psychiatry

== ENCOUNTER 2020-01-01 21:19 | Observation (INO) ==
[2020-01-01 22:03] LABS: Basophils % 0.9 %; Eosinophils # 0.1 K/mcL (0.0-0.6); Eosinophils % 1.9 %; Hematocrit 42.3 % (37.5-50.1); Hemoglobin 14.2 g/dL (12.9-16.9); Immature Granulocytes % 0.2 % (0-4); Lymphocytes # 1.5 K/mcL (0.6-4.6); Lymphocytes % 36.3 %; Mean Corpuscular HGB Conc 33.6 g/dL (31.6-35.5); Mean Corpuscular Hemoglobin 30.5 pg (28.0-33.3); Mean Platelet Volume 8.8 fL (9.4-12.4); Monocytes # 0.5 K/mcL (0.0-1.3); Monocytes % 11.8 %; Neutrophils # 2.1 K/mcL (1.6-8.9); Platelet Count 263 K/mcL (140-400); Red Blood Count 4.65 M/mcL (4.19-5.50); Red Cell Distribution Width 12.1 % (11.5-14.5); Segmented Neutrophils % 48.9 %; White Blood Count 4.2 K/mcL (4.3-11.1)
[2020-01-01 22:12] LABS: Bilirubin,Urine Negative (Negative); Blood,Urine Negative (Negative); Clarity,Urine Clear (Clear); Color,Urine Yellow (Yellow); Glucose,Urine (UA) Normal (Normal); Ketones,Urine Negative (Negative); Leukocyte Esterase,Urine Small (Negative); Nitrite,Urine Negative (Negative); PH,Urine 6.5 pH Units (5.0-8.0); Protein,Urine Negative (Neg-Trace); Specific Gravity,Urine 1.026 (1.010-1.025); Urobilinogen,Urine Normal (Normal)
[2020-01-01 22:15] LABS: Bacteria,Urine None Seen per hpf (None-Few); Hyaline Casts,Urine None Seen per lpf (None-Few); RBC,Urine 0-3 per hpf (0-3); Squamous Epithelial Cell,Urine Moderate per lpf (None-Few)
[2020-01-01 22:25] LABS: Acetaminophen < 10 mcg/mL (10-20); BUN/Creatinine Ratio 12 (6-26); Blood Urea Nitrogen 11 mg/dL (6-20); Calcium 9.6 mg/dL (8.6-10.3); Carbon Dioxide 30 mEq/L (23-29); Chloride 103 mEq/L (98-107); Ethanol < 10 mg/dL (Less than 10); Glucose 101 mg/dL (70-105); Osmolality,Calculated 280 (280-300); Potassium 3.4 mEq/L (3.5-5.1); Salicylate < 2.5 mg/dL (15.0-30.0); Sodium 135 mEq/L (136-145); eGFR For African Americans > 60 (> 60); eGFR For Non-African Americans > 60 (> 60)
[2020-01-01 22:33] LABS: Amphetamine Screen,Urine Positive ng/mL (Cutoff=1000); Barbiturate Screen,Urine Negative ng/mL (Cutoff=200); Benzodiazepines Screen,Urine Negative ng/mL (Cutoff=200); Cannabinoid Screen,Urine Negative ng/mL (Cutoff = 50); Cocaine Screen,Urine Negative ng/mL (Cutoff= 300); Opiate Screen,Urine Negative ng/mL (Cutoff=300); Phencyclidine Screen,Urine Negative ng/mL (Cutoff=25)
[2020-01-01] MEDS ORDERED: Ibuprofen 400 MG TABLET PO PRN (23:31)
[2020-01-01] MEDS ORDERED: *HR* LORazepam 2 MG/ML VIAL IM PRN (23:31)
[2020-01-01] MEDS ORDERED: Haloperidol Lactate 5 MG/ML VIAL IM PRN (23:31)
[2020-01-01] MEDS ORDERED: haloperidoL 5 MG TABLET PO PRN (23:31)
[2020-01-01] MEDS ORDERED: *HR* LORazepam 1 MG TABLET PO PRN (23:31)
[2020-01-01] MEDS ORDERED: MOM Conc 10 ML UD.LIQ PO PRN (23:31)
[2020-01-01] MEDS ORDERED: Mag Hydrox/Al Hydrox/Simeth 30 ML UDC PO PRN (23:31)
[2020-01-02] MEDS: hydrOXYzine pamoate 25 MG CAPSULE PO PRN ×2 (00:03→22:37)
[2020-01-02] MEDS: traZODone 50 MG TABLET PO PRN ×2 (00:03→22:38)
[2020-01-02] MEDS ORDERED: cloNIDine HCL 0.1 MG TABLET PO PRN (10:48)
[2020-01-02] MEDS ORDERED: Buprenorphine Hcl/Naloxone Hcl [Suboxone 8 Mg-2 Mg S SL ONE (14:30)
[2020-01-03 08:42] VITALS: BP 118/71
[2020-01-03] MEDS ORDERED: BuPROPion XL (24 HR) 150 MG TABLET PO SCH (10:15)
== END 2020-01-03 11:08 | disposition home or self-care (01) ==
LOC: 1ANU 21:19 → EMEROOARM 21:19 → 1ANU 23:30
PROVIDERS: ADMIT Psychiatry & Neurology Psychiatry; ATTEND Psychiatry & Neurology Psychiatry